=== PATIENT | male | born 1945 | race American Indian/Alaskan Native ===

== ENCOUNTER 2017-02-12 20:42 | Emergency (ER) | payer SELFPAY ==
[2017-02-12] MEDS ORDERED: KEPPRA 1,000 MG/NS 0.75% 100ML 1,000 MG/100 ML BAG IV ONE ×2 (21:06)
--- NOTE | 2017-02-12 21:11 | Emergency Department Report ---
HPI - General Chief Complaint: Seizure Time Seen by Provider: 02/12/17 20:53 - HPI HPI: Room 3 The patient is a 72-year-old male presenting with a chief complaint of seizure. Family states the patient had a generalized tonic-clonic seizure on the floor of his bedroom today at 17:30 0. Patient is amnestic to the event. Family states the seizure lasted "a while." Patient denies having any preceding symptoms and denies any current symptoms. The patient states right now he feels "all right." Location: Central nervous system Duration: Today at 17:30 for "a while" Quality: Generalized tonic-clonic Severity: Moderate Modifying factors: [see above] Context: [see above] Mode of transportation: EMS ED Past Medical Hx - Past Medical History Previous Medical History?: No - Surgical History Past Surgical History?: No - Family History Family history: no significant - Social History Smoking Status: Current Every Day Smoker (3-4 cigarettes daily) Substance Use Type: None (denies illicit drug use or alcohol use) - Medications Home Medications: Home Medications Medication Instructions Recorded Confirmed Last Taken Type levETIRAcetam [Keppra TAB] 500 mg PO BID #60 tablet 02/12/17 Unknown Rx ED Review of Systems ROS: Stated complaint: SEIZURE Other details as noted in HPI Comment: All other systems reviewed and negative Constitutional: denies: chills, fever Eyes: denies: eye pain, eye discharge, vision change ENT: denies: ear pain, throat pain Respiratory: denies: cough, shortness of breath, wheezing Cardiovascular: denies: chest pain, palpitations Endocrine: no symptoms reported Gastrointestinal: denies: abdominal pain, nausea, diarrhea Musculoskeletal: denies: back pain, joint swelling, arthralgia Skin: denies: rash, lesions Neurological: other (seizure). denies: headache, weakness, paresthesias Psychiatric: denies: anxiety, depression Hematological/Lymphatic: denies: easy bleeding, easy bruising Physical Exam - Physical Exam Physical Exam: GENERAL: The patient is well-developed well-nourished male lying on stretcher not appearing to be in acute distress. [] HEENT: Normocephalic. Atraumatic. Extraocular motions are intact. Patient has moist mucous membranes. Left sclera appears injected NECK: Supple. No meningitic signs are noted. Trachea midline CHEST/LUNGS: Clear to auscultation. There is no respiratory distress noted. HEART/CARDIOVASCULAR: Regular. There is no tachycardia. There is no gallop rub or murmur. ABDOMEN: Abdomen is soft, nontender. Patient has normal bowel sounds. There is no abdominal distention. SKIN: There is no rash. There is no edema. There is no diaphoresis. NEURO: The patient is awake, alert, and oriented. The patient is cooperative. The patient has no focal neurologic deficits. The patient has normal speech. Cranial nerves II through XII grossly intact, no drift MUSCULOSKELETAL: There is no evidence of acute injury. ED Medical Decision Making - Lab Data Result diagrams: 02/12/17 21:12 02/12/17 21:12 Laboratory Tests 02/12/17 02/12/17 02/12/17 21:12 21:12 21:12 WBC 6.9 RBC 4.52 Hgb 14.1 Hct 43.1 MCV 95 H MCH 31 MCHC 33 RDW 15.9 H Plt Count 221 Lymph % (Auto) 33.0 [place] % (Auto) 6.8 Eos % (Auto) 1.3 Baso % (Auto) 0.6 Lymph # 2.3 [place] # 0.5 Eos # 0.1 Baso # 0.0 Seg Neutrophils % 58.3 Seg Neutrophils # 4.0 PT 14.6 INR 1.08 APTT 35.5 Sodium 143 Potassium 4.2 Chloride 102.4 Carbon Dioxide 27 Anion Gap 18 BUN 11 Creatinine 0.9 Estimated GFR > 60 BUN/Creatinine Ratio 12.22 Glucose 101 H Calcium 9.0 Magnesium Total Creatine Kinase 65 CK-MB (CK-2) 1.7 CK-MB (CK-2) Rel Index 2.6 Troponin T Urine Color Urine Turbidity Urine pH Ur Specific [place] Urine Protein Urine Glucose (UA) Urine Ketones Urine Blood Urine Nitrite Urine Bilirubin Urine Urobilinogen Ur Leukocyte Esterase Urine WBC (Auto) Urine RBC (Auto) Urine Bacteria (Auto) Urine Mucus Urine Opiates Screen Urine Methadone Screen Ur Barbiturates Screen Ur Phencyclidine Scrn Ur Amphetamines Screen U Benzodiazepines Scrn Urine Cocaine Screen U Marijuana (THC) Screen Drugs of Abuse Note 02/12/17 02/12/17 02/12/17 21:12 21:34 21:34 WBC RBC Hgb Hct MCV MCH MCHC RDW Plt Count Lymph % (Auto) [place] % (Auto) Eos % (Auto) Baso % (Auto) Lymph # [place] # Eos # Baso # Seg Neutrophils % Seg Neutrophils # PT INR APTT Sodium Potassium Chloride Carbon Dioxide Anion Gap BUN Creatinine Estimated GFR BUN/Creatinine Ratio Glucose Calcium Magnesium 2.00 Total Creatine Kinase CK-MB (CK-2) CK-MB (CK-2) Rel Index Troponin T < 0.010 Urine Color Yellow Urine Turbidity Clear Urine pH 5.0 Ur Specific [place] 1.016 Urine Protein 30 mg/dl Urine Glucose (UA) Neg Urine Ketones Neg Urine Blood Neg Urine Nitrite Neg Urine Bilirubin Neg Urine Urobilinogen < 2.0 Ur Leukocyte Esterase Neg Urine WBC (Auto) < 1.0 Urine RBC (Auto) 1.0 Urine Bacteria (Auto) 1+ Urine Mucus Few Urine Opiates Screen Presumptive negative Urine Methadone Screen Presumptive negative Ur Barbiturates Screen Presumptive negative Ur Phencyclidine Scrn Presumptive negative Ur Amphetamines Screen Presumptive negative U Benzodiazepines Scrn Presumptive negative Urine Cocaine Screen Presumptive negative U Marijuana (THC) Screen Presumptive negative Drugs of Abuse Note Disclamer - EKG Data -: EKG Interpreted by Tx EKG shows normal: sinus rhythm Rate: normal - EKG Data When compared to previous EKG there are: previous EKG unavailable Interpretation: other (no ischemic changes seen) - Radiology Data Radiology results: report reviewed (CT head), image reviewed (CT head) CT head (read by radiologist)-no acute intracranial abnormality. Given patient' s age and provided history, MRI is suggested for further evaluation. 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 - Differential Diagnosis epilepsy, ICH, electrolyte imbalance, CVA Critical care attestation.: If time is entered above; I have spent that time in minutes in the direct care of this critically ill patient, excluding procedure time. ED Disposition Clinical Impression: Seizure Disposition: DC-01 TO HOME OR SELFCARE Is pt being admited?: No Does the pt Need Aspirin: No Condition: Stable Instructions: Epilepsy (ED), New-Onset Seizure in Adults (ED) Additional Instructions: You should not drive or operate heavy machinery or be unattended near large bodies water or [place] until you have been cleared by a neurologist. Return to the emergency department immediately should you develop worsening symptoms, fever, inability to tolerate food or liquid or any other concerns. Prescriptions: levETIRAcetam [Keppra TAB] 500 mg PO BID #60 tablet Referrals: VICTOR MANUEL LANTIGUA MD [Staff Physician] - [facility] (Dr. Lantigua is a neurologist. Please follow up with him for further evaluation) Time of Disposition: 23:10
--- NOTE | 2017-02-12 21:52 | Cat Scan Report ---
FINAL REPORT EXAM: CT HEAD/BRAIN WO CON HISTORY: new onset seizure TECHNIQUE: CT imaging is acquired through the brain without contrast. Transaxial , coronal and sagittal reformations are provided. PRIORS: None. FINDINGS: Ventricles and CSF spaces are proportionately enlarged, consistent with parenchymal atrophy. Scattered deep and subcortical white matter hypodense foci are confluent in some areas and are compatible with microvascular angiopathy. No acute intracranial hemorrhage or mass effect. Calvarium and superficial scalp are intact. Partially visualized paranasal sinuses are clear. Mastoids are clear. IMPRESSION: No acute intracranial abnormality. Given patient's age and provided history, MRI is suggested for further evaluation. 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
[2017-02-12 22:00] LABS: Basophils % (Auto) 0.6 % (0.0-1.8); Eosinophils % (Auto) 1.3 % (0.0-4.3); Hematocrit 43.1 % (35.5-45.6); Hemoglobin 14.1 gm/dl (11.8-15.2); Mean Corpuscular HGB Conc 33 % (32-34); Mean Corpuscular Hemoglobin 31 pg (28-32); Mean Corpuscular Volume 95 fl (84-94); Platelet Count 221 K/mm3 (140-440); Red Blood Count 4.52 M/mm3 (3.65-5.03); Red Cell Distribution Width 15.9 % (13.2-15.2); White Blood Count 6.9 K/mm3 (4.5-11.0)
[2017-02-12 22:09] LABS: Urine Drugs of Abuse Note Disclamer
[2017-02-12 22:38] LABS: Creatine Kinase MB 1.7 ng/mL (0.0-4.0)
[2017-02-12 22:39] LABS: Anion Gap 18 mmol/L; BUN/Creatinine Ratio 12.22; Blood Urea Nitrogen 11 mg/dL (9-20); Carbon Dioxide 27 mmol/L (22-30); Chloride 102.4 mmol/L (98-107); Creatine Kinase 65 units/L (55-170); Glucose 101 mg/dL (75-100); Potassium 4.2 mmol/L (3.6-5.0); Sodium 143 mmol/L (137-145)
[2017-02-12 22:44] LABS: INR 1.08 (0.87-1.13)
[2017-02-12 22:45] LABS: Partial Thromboplastin Time 35.5 Sec. (24.2-36.6)
[2017-02-12 22:52] LABS: Bacteria,Urine 1+ /HPF (Negative); Bilirubin,Urine NEG (Negative); Blood,Urine NEG (Negative); Ketones,Urine NEG (Negative); Leukocyte Esterase,Urine NEG (Negative); Mucus,Urine FEW /HPF; Nitrite,Urine NEG (Negative); Urobilinogen,Urine < 2.0 mg/dL (<2.0); WBC,Urine < 1.0 /HPF (0.0-6.0)
[2017-02-13 01:33] VITALS: BP 138/90
== END 2017-02-12 23:38 | disposition home or self-care (01) ==
LOC: EDSEX → ED 20:42
DX: R56.9 Unspecified convulsions (principal); F17.210 Nicotine dependence, cigarettes, uncomplicated
CPT/HCPCS: 36415; 70450; 80048; 80307; 81001; 82550; 82553; 83735; 84484; 85025; 85610; 85730; 93005; 93010; 96365; 99285; J1953

== ENCOUNTER 2017-07-31 10:46 | Inpatient (IN) | payer MEDICARE, MEDICAID ==
[2017-07-31] MEDS ORDERED: ATIVAN IV ONE ×2 (11:07→11:42)
[2017-07-31] MEDS ORDERED: ATIVAN ONE ×2 (11:10→15:24)
[2017-07-31 11:11] LABS: Urine Drugs of Abuse Note Disclamer
[2017-07-31 11:27] LABS: Bacteria,Urine 1+ /HPF (Negative); Bilirubin,Urine NEG (Negative); Blood,Urine NEG (Negative); Ketones,Urine NEG (Negative); Leukocyte Esterase,Urine NEG (Negative); Mucus,Urine FEW /HPF; Nitrite,Urine NEG (Negative); Urobilinogen,Urine < 2.0 mg/dL (<2.0)
[2017-07-31 12:00] LABS: Basophils % (Auto) 0.9 % (0.0-1.8); Eosinophils % (Auto) 1.9 % (0.0-4.3); Hematocrit 43.7 % (35.5-45.6); Hemoglobin 14.2 gm/dl (11.8-15.2); Mean Corpuscular HGB Conc 33 % (32-34); Mean Corpuscular Hemoglobin 31 pg (28-32); Mean Corpuscular Volume 95 fl (84-94); Platelet Count 244 K/mm3 (140-440); Red Blood Count 4.59 M/mm3 (3.65-5.03); Red Cell Distribution Width 16.6 % (13.2-15.2); White Blood Count 8.4 K/mm3 (4.5-11.0)
--- NOTE | 2017-07-31 12:11 | Cat Scan Report ---
CT HEAD WITHOUT CONTRAST: HISTORY: Altered mental status. TECHNIQUE: Sequential CT images without contrast. FINDINGS: Images obtained show bilateral prominence of the sulci and ventricles. There are no abnormal intra- or extra-axial blood or fluid collections. There are no focal masses or evidence of mass effect. The rodriguez white matter differentiation appears within normal limits. Regions of periventricular decreased attenuation are consistent with microangiopathic ischemic disease. Focal chronic infarcts are identified in the left anterior quiroga radiata and left moise which are new findings since CT brain dated 02/12/17. 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 No acute intracranial process is identified.
[2017-07-31 12:12] LABS: Alanine Aminotransferase 14 units/L (7-56); Albumin 4.1 g/dL (3.9-5); Albumin/Globulin Ratio 1.4 %; Alkaline Phosphatase 77 units/L (35-129); Anion Gap 20 mmol/L; BUN/Creatinine Ratio 16; Blood Urea Nitrogen 14 mg/dL (9-20); Carbon Dioxide 25 mmol/L (22-30); Chloride 98.1 mmol/L (98-107); Creatine Kinase 109 units/L (55-170); Glucose 163 mg/dL (75-100); Potassium 3.1 mmol/L (3.6-5.0); Sodium 140 mmol/L (137-145)
[2017-07-31] MEDS ORDERED: KEPPRA 1,000 MG/NS 0.75% 100ML 1,000 MG/100 ML BAG IV ONE (12:14)
--- NOTE | 2017-07-31 12:32 | Emergency Department Report ---
HPI - General Chief Complaint: Altered Mental Status Time Seen by Provider: 07/31/17 11:09 - HPI HPI: This is a 72-year-old male presents to the emergency department through triage with altered mental status and suspicion for a seizure. The patient's niece is currently at bedside but was not there at the time but says that he was riding in a friend's car when he appeared to have seizure-like activity. Since he has been in the emergency department the patient is awake but confused and unable to answer questions. Therefore is a poor historian. Unknown what antiepileptic medication he is on or if he has a primary care physician. ED Past Medical Hx - Past Medical History Hx Seizures: Yes - Social History Smoking Status: Current Every Day Smoker (3-4 cigarettes daily) Substance Use Type: None (denies illicit drug use or alcohol use) - Medications Home Medications: Home Medications Medication Instructions Recorded Confirmed Last Taken Type levETIRAcetam [Keppra TAB] 500 mg PO BID #60 tablet 02/12/17 Unknown Rx ED Review of Systems ROS: Stated complaint: SEIZURE Other details as noted in HPI Comment: Unobtainable due to pts medical conditions Physical Exam - Physical Exam Vital Signs: Vital Signs 07/31/17 12:20 Temperature 98.4 F Pulse Rate 104 H Respiratory 18 Rate Blood Pressure 152/98 [Left] O2 Sat by Pulse 98 Oximetry Physical Exam: GENERAL: The patient is awake but confused and possibly postictal. HENT: Normocephalic. Atraumatic. Patient has moist mucous membranes. EYES: Extraocular motions are intact. Pupils equal reactive to light bilaterally. NECK: Supple. Trachea is midline. CHEST/LUNGS: Clear to auscultation. There is no respiratory distress noted. HEART/CARDIOVASCULAR: Regular. There is mild tachycardia. There is no murmur. ABDOMEN: Abdomen is soft, nontender. Patient has normal bowel sounds. There is no abdominal distention. SKIN: Skin is warm and dry. NEURO: The patient is awake but confused. He is not following any commands. He is slightly agitated. When asked a question, the patient repeats the question but does not answer. MUSCULOSKELETAL: There is no tenderness or deformity. There is no limitation range of motion. There is no evidence of acute injury. ED Course Vital Signs 07/31/17 12:20 Temperature 98.4 F Pulse Rate 104 H Respiratory 18 Rate Blood Pressure 152/98 [Left] O2 Sat by Pulse 98 Oximetry ED Medical Decision Making - Lab Data Result diagrams: 07/31/17 11:32 07/31/17 11:32 - Radiology Data Radiology results: report reviewed CT HEAD WITHOUT CONTRAST: HISTORY: Altered mental status. TECHNIQUE: Sequential CT images without contrast. FINDINGS: Images obtained show bilateral prominence of the sulci and ventricles. There are no abnormal intra- or extra-axial blood or fluid collections. There are no focal masses or evidence of mass effect. The rodriguez white matter differentiation appears within normal limits. Regions of periventricular decreased attenuation are consistent with microangiopathic ischemic disease. Focal chronic infarcts are identified in the left anterior quiroga radiata and left moise which are new findings since CT brain dated 02/12/17. 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 No acute intracranial process is identified. Transcribed By: TTR Dictated By: SRAVANTHI AZUL JR, MD Electronically Authenticated By: SRAVANTHI AZUL JR, MD Signed Date/Time: 07/31/17 1206 - Medical Decision Making The patient allegedly had a witnessed seizure just prior to presentation. He has been altered since arrival. CT of the head did not show any bleed, shift, mass or any acute process. Labs up and mostly unremarkable and do not show any etiology of his symptoms. He did receive some Ativan in order to treat the seizure and allow us to get labs and imaging completed. However he has been reevaluated multiple times for multiple hours and still appears altered. It is reasonable be admitted to the hospital for further evaluation and treatment and has been accepted for admission by the hospitalist, Dr. Nath. - Differential Diagnosis seizure, TIA, CVA, sepsis Critical Care Time: No Critical care attestation.: If time is entered above; I have spent that time in minutes in the direct care of this critically ill patient, excluding procedure time. ED Disposition Clinical Impression: Seizure, Hypokalemia Altered mental status Qualifiers: Altered mental status type: unspecified Qualified Code(s): R41.82 - Altered mental status, unspecified Disposition: 09 OP ADMIT IP TO THIS HOSP Is pt being admited?: Yes Condition: Fair Referrals: PRIMARY CARE, [Primary Care Provider] - 3-5 Days Time of Disposition: 15:10
[2017-07-31] MEDS: KCL 10MEQ/100ML 10 MEQ/100 ML BAG IV SCH ×2 (13:41→14:52)
--- NOTE | 2017-07-31 14:52 | History and Physical Report ---
History of Present Illness Chief complaint: confusion History of present illness: 72 YO Female with Nicotine Dependence, Nicotine Dependence presents to ED for evaluation. Pt unable to provide history, Pt is lethargic and confused on exam. Pt history taken from Family as well as ED staff. As per family, the patient was riding in a friends car when he lost consciousness and began having generalized tonic clonic like seizure activity. Pt was subsequently transported to [facility] for further evaluation and care. Pt seen and evaluated in ED and found to be in a postictal state. Pt noncompliant with Keppra therapy. Pt loaded with keppra and admitted to medical floor. Past History Past Medical History: seizures Past Surgical History: No surgical history, Other (reviewed) Social history: smoking Family history: no significant family history, other (reviewed) Medications and Allergies Allergies Allergy/AdvReac Type Severity Reaction Status Date / Time No Known Allergies Allergy Verified 02/12/17 21:22 Home Medications Medication Instructions Recorded Confirmed Last Taken Type No Known Home Medications [No 07/31/17 07/31/17 Unknown History Reported Home Medications] Active Meds: Active Medications Potassium Chloride (Kcl 10meq/100ml) 10 meq in 100 mls @ 100 mls/hr IV Q1H JOSH Stop: 07/31/17 14:59 Last Admin: 07/31/17 14:52 Dose: 100 mls/hr Review of Systems ROS unobtainable: due to mental status Exam - Constitutional Vitals: Temp Pulse Resp BP Pulse Ox 98.4 F 118 H 96 H 152/98 96 07/31/17 12:20 07/31/17 13:30 07/31/17 14:51 07/31/17 13:30 07/31/17 13:30 General appearance: Present: mild distress - EENT Eyes: Present: PERRL ENT: hearing intact, clear oral mucosa - Neck Neck: Present: supple, normal ROM - Respiratory Respiratory effort: normal Respiratory: bilateral: CTA - Cardiovascular Heart Sounds: Present: S1 & S2. Absent: rub, click - Extremities Extremities: pulses symmetrical, No edema Peripheral Pulses: within normal limits - Abdominal General gastrointestinal: Present: soft, non-tender, non-distended, normal bowel sounds Male genitourinary: Present: normal - Integumentary Integumentary: Present: clear, dry, decreased turgor - Musculoskeletal Musculoskeletal: generalized weakness - Psychiatric Psychiatric: no intact judgment & insight, no memory intact - Neurologic Neurologic: no gait normal Results - Labs CBC & Chem 7: 07/31/17 11:32 07/31/17 11:32 Labs: Abnormal lab results 07/31/17 07/31/17 07/31/17 Range/Units 11:32 11:32 11:32 MCV 95 H (84-94) fl RDW 16.6 H (13.2-15.2) % Potassium 3.1 L (3.6-5.0) mmol/L Glucose 163 H (75-100) mg/dL Salicylates < 0.3 L (2.8-20.0) mg/dL Assessment and Plan - Patient Problems (1) Seizure Current Visit: Yes Status: Acute Plan to address problem: Pt loaded with keppra therapy, keppra bid, aspiration precautions. neuro checks , CT Head to evaluate for trauma or hydrocephalous. (2) Unconscious state Current Visit: Yes Status: Acute Plan to address problem: CT Head, neuro checks, supportive care, aspiration precautions, (3) Encephalopathy Current Visit: Yes Status: Acute Plan to address problem: Metabolic encephalopathy: IVF resuscitation, fall risk protocol, CT head, neuro checks. (4) Nicotine dependence Current Visit: Yes Status: Acute Plan to address problem: supportive care, (5) DVT prophylaxis Current Visit: Yes Status: Acute
[2017-07-31] MEDS ORDERED: MILK OF MAGNESIA PO PRN (14:54)
[2017-07-31] MEDS ORDERED: TYLENOL PO PRN (14:54)
[2017-07-31] MEDS ORDERED: DULCOLAX PR PRN (14:54)
[2017-07-31] MEDS ORDERED: ZOFRAN IV PRN (14:54)
[2017-07-31] MEDS ORDERED: PROVENTIL IH PRN (14:54)
[2017-08-01] MEDS ORDERED: APRESOLINE IV PRN ×2 (05:29→14:02)
[2017-08-01] MEDS: KEPPRA PO SCH ×3 (06:13→22:47)
--- NOTE | 2017-08-01 07:37 | History and Physical Report ---
History of Present Illness Date of admission: 07/31/17 14:54 Past History Past Medical History: seizures Past Surgical History: No surgical history, Other (reviewed) Social history: smoking Family history: no significant family history, other (reviewed) Medications and Allergies Allergies Allergy/AdvReac Type Severity Reaction Status Date / Time No Known Allergies Allergy Verified 02/12/17 21:22 Home Medications Medication Instructions Recorded Confirmed Last Taken Type No Known Home Medications [No 07/31/17 07/31/17 Unknown History Reported Home Medications] Active Meds: Active Medications Acetaminophen (Tylenol) 650 mg PO Q4H PRN PRN Reason: Pain MILD(1-3)/Fever >100.5/RICHARDS Albuterol (Proventil) 2.5 mg IH Q4HRT PRN PRN Reason: Shortness Of Breath Bisacodyl (Dulcolax) 10 mg MS QDAY PRN PRN Reason: Constipation unrelieved by MOM Hydralazine HCl (Apresoline) 5 mg IV Q4HR PRN PRN Reason: Hypertension Last Admin: 08/01/17 06:12 Dose: 5 mg Levetiracetam (Keppra) 500 mg PO BID JOSH Last Admin: 08/01/17 06:13 Dose: Not Given Magnesium Hydroxide (Milk Of Magnesia) 30 ml PO Q4H PRN PRN Reason: Constipation Ondansetron HCl (Zofran) 4 mg IV Q8H PRN PRN Reason: N/V unrelieved by Reglan Exam - Constitutional Vitals: Temp Pulse Resp BP Pulse Ox 98.7 F 116 H 18 127/90 97 08/01/17 07:21 08/01/17 07:21 08/01/17 07:21 08/01/17 07:21 08/01/17 07:21 Results - Labs CBC & Chem 7: 07/31/17 11:32 07/31/17 11:32 Labs: Laboratory Last Values WBC 8.4 K/mm3 (4.5-11.0) 07/31/17 11:32 RBC 4.59 M/mm3 (3.65-5.03) 07/31/17 11:32 Hgb 14.2 gm/dl (11.8-15.2) 07/31/17 11:32 Hct 43.7 % (35.5-45.6) 07/31/17 11:32 MCV 95 fl (84-94) H 07/31/17 11:32 MCH 31 pg (28-32) 07/31/17 11:32 MCHC 33 % (32-34) 07/31/17 11:32 RDW 16.6 % (13.2-15.2) H 07/31/17 11:32 Plt Count 244 K/mm3 (140-440) 07/31/17 11:32 Lymph % (Auto) 33.5 % (13.4-35.0) 07/31/17 11:32 [place] % (Auto) 6.1 % (0.0-7.3) 07/31/17 11:32 Eos % (Auto) 1.9 % (0.0-4.3) 07/31/17 11:32 Baso % (Auto) 0.9 % (0.0-1.8) 07/31/17 11:32 Lymph # 2.8 K/mm3 (1.2-5.4) 07/31/17 11:32 [place] # 0.5 K/mm3 (0.0-0.8) 07/31/17 11:32 Eos # 0.2 K/mm3 (0.0-0.4) 07/31/17 11:32 Baso # 0.1 K/mm3 (0.0-0.1) 07/31/17 11:32 Seg Neutrophils % 57.6 % (40.0-70.0) 07/31/17 11:32 Seg Neutrophils # 4.8 K/mm3 (1.8-7.7) 07/31/17 11:32 Sodium 140 mmol/L (137-145) 07/31/17 11:32 Potassium 3.1 mmol/L (3.6-5.0) L 07/31/17 11:32 Chloride 98.1 mmol/L (98-107) 07/31/17 11:32 Carbon Dioxide 25 mmol/L (22-30) 07/31/17 11:32 Anion Gap 20 mmol/L 07/31/17 11:32 BUN 14 mg/dL (9-20) 07/31/17 11:32 Creatinine 0.9 mg/dL (0.8-1.5) 07/31/17 11:32 Estimated GFR > 60 ml/min 07/31/17 11:32 BUN/Creatinine Ratio 16 % 07/31/17 11:32 Glucose 163 mg/dL (75-100) H 07/31/17 11:32 Calcium 9.0 mg/dL (8.4-10.2) 07/31/17 11:32 Total Bilirubin 0.90 mg/dL (0.1-1.2) 07/31/17 11:32 AST 17 units/L (5-40) 07/31/17 11:32 ALT 14 units/L (7-56) 07/31/17 11:32 Alkaline Phosphatase 77 units/L (35-129) 07/31/17 11:32 Total Creatine Kinase 109 units/L (55-170) 07/31/17 11:32 Troponin T < 0.010 ng/mL (0.00-0.029) 07/31/17 11:32 Total Protein 7.0 g/dL (6.3-8.2) 07/31/17 11:32 Albumin 4.1 g/dL (3.9-5) 07/31/17 11:32 Albumin/Globulin Ratio 1.4 % 07/31/17 11:32 TSH 0.735 mlU/mL (0.270-4.200) 07/31/17 11:32 Urine Color Yellow (Yellow) 07/31/17 11:00 Urine Turbidity Clear (Clear) 07/31/17 11:00 Urine pH 6.0 (5.0-7.0) 07/31/17 11:00 Ur Specific [place] 1.017 (1.003-1.030) 07/31/17 11:00 Urine Protein 100 mg/dl mg/dL (Negative) 07/31/17 11:00 Urine Glucose (UA) Neg mg/dL (Negative) 07/31/17 11:00 Urine Ketones Neg mg/dL (Negative) 07/31/17 11:00 Urine Blood Neg (Negative) 07/31/17 11:00 Urine Nitrite Neg (Negative) 07/31/17 11:00 Urine Bilirubin Neg (Negative) 07/31/17 11:00 Urine Urobilinogen < 2.0 mg/dL (<2.0) 07/31/17 11:00 Ur Leukocyte Esterase Neg (Negative) 07/31/17 11:00 Urine WBC (Auto) 2.0 /HPF (0.0-6.0) 07/31/17 11:00 Urine RBC (Auto) 1.0 /HPF (0.0-6.0) 07/31/17 11:00 Urine Bacteria (Auto) 1+ /HPF (Negative) 07/31/17 11:00 Urine Mucus Few /HPF 07/31/17 11:00 Salicylates < 0.3 mg/dL (2.8-20.0) L 07/31/17 11:32 Urine Opiates Screen Presumptive negative 07/31/17 11:00 Urine Methadone Screen Presumptive negative 07/31/17 11:00 Acetaminophen < 15.0 ug/mL (10.0-30.0) 07/31/17 11:32 Ur Barbiturates Screen Presumptive negative 07/31/17 11:00 Ur Phencyclidine Scrn Presumptive negative 07/31/17 11:00 Ur Amphetamines Screen Presumptive negative 07/31/17 11:00 U Benzodiazepines Scrn Presumptive negative 07/31/17 11:00 Urine Cocaine Screen Presumptive negative 07/31/17 11:00 U Marijuana (THC) Screen Presumptive positive 07/31/17 11:00 Drugs of Abuse Note Disclamer 07/31/17 11:00 Plasma/Serum Alcohol < 0.01 gm% (0-0.07) 07/31/17 11:32
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
[2017-08-01 08:16] LABS: Anion Gap 17 mmol/L; BUN/Creatinine Ratio 14; Blood Urea Nitrogen 11 mg/dL (9-20); Calcium 8.9 mg/dL (8.4-10.2); Carbon Dioxide 28 mmol/L (22-30); Chloride 101.8 mmol/L (98-107); Glucose 82 mg/dL (75-100); Potassium 3.5 mmol/L (3.6-5.0); Sodium 143 mmol/L (137-145)
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
--- NOTE | 2017-08-01 17:53 | Magnetic Resonance Report ---
FINAL REPORT EXAM: MR BRAIN WO CON HISTORY: seizure TECHNIQUE: Multiplanar, multisequence MRI of the brain was performed without intravenous contrast. PRIORS: CT of the head 02/12/2017. FINDINGS: Motion artifact degrades image quality on several sequences. Several punctate areas of decreased signal on the T2 GRE sequence are seen scattered throughout the cerebrum, brainstem and right cerebellar hemisphere. No intracranial mass or evidence of acute ischemic infarct. No restricted diffusion. The intracranial flow voids are patent. Dilated ventricles, likely related to diffuse cerebral volume loss. Confluent areas of T2 FLAIR hyperintensity are seen in the periventricular and subcortical white matter. The basilar cisterns are patent. Mucosal thickening of the paranasal sinuses sparing the sphenoid sinus is noted. Left frontal sinus mucous retention cyst or osteoma is seen. An air-fluid level seen in the right maxillary sinus. The orbits are intact. The extracranial soft tissues are normal. IMPRESSION: 1. Severe findings of chronic microvascular ischemic disease with scattered signal abnormality which may represent chronic hypertensive microhemorrhages versus amyloid angiopathy. 2. Air-fluid level in the right maxillary sinus can be seen in acute sinusitis. 3. Diffuse cerebral volume loss.
--- NOTE | 2017-08-02 08:31 | Event Note ---
Date: 08/02/17 Patient seen and examined this morning improved symptomatically. Patient educated about clinical diagnosis. We did speak with the niece and verified home medication he is on HCTZ losartan combination. Tachycardia has resolved. He still a little confused as to month but oriented to day and person. He has an echocardiogram pending and will be done prior to discharge anticipated to distress today for continued neurology. Patient should continue on blood pressure control of educated the patient on this and also based on MRI result although not indicative of stroke he does have some severe ischemic disease and recommended an aspirin daily 81 mg. I've also advised against alcohol or driving until he is evaluated by neurology outpatient. See full discharge summary;
[2017-08-02] MEDS: KEPPRA PO SCH (09:54)
[2017-08-02] MEDS ORDERED: DIOVAN PO SCH (10:00)
[2017-08-02] MEDS ORDERED: COZAAR PO SCH (10:00)
[2017-08-02] MEDS ORDERED: ASPIRIN PO SCH (10:00)
[2017-08-02] MEDS ORDERED: HCTZ PO SCH (10:00)
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
--- NOTE | 2017-08-02 12:21 | Progress Note ---
Assessment and Plan Echocardiogram and EEG completed. Patient is ready for discharge. - Patient Problems (1) Hypertension Current Visit: No Status: Acute Qualifiers: Hypertension type: essential hypertension Qualified Code(s): I10 - Essential (primary) hypertension (2) Tachycardia Onset Date: Unknown Current Visit: Yes Status: Acute Subjective Date of service: 08/02/17 Principal diagnosis: seizures, cerebrovsscular disease Interval history: Patient is awake and alert. Still responds slowly. Denies headache. Tolerating meals. Ambulating to chair. Objective - Vital Sign Vital Signs - 12hr 08/02/17 08/02/17 08/02/17 02:39 04:03 07:44 Temperature 99.4 F 99.5 F Pulse Rate 96 H 101 H Respiratory 20 18 20 Rate Blood Pressure 150/112 147/109 O2 Sat by Pulse 96 96 97 Oximetry 08/02/17 09:54 Temperature Pulse Rate 101 H Respiratory Rate Blood Pressure 147/109 O2 Sat by Pulse Oximetry - General Apperance Constitutional: comfortable - EENT EENT: mucous membranes moist - Neurologic Cranial nerve examination: EOMI, face symmetric, tongue midline Speech examination: intact Detailed motor examination: grossly full strength in Detailed sensory examination: intact Reflex and gait examination: normal gait (Echocardiogram completed today. Report pending. EEG also completed. Slow rhythm, 6 to 7 Hz, no focus of seizure activity identified.) - Laboratory Findings CBC and BMP: 07/31/17 11:32 08/01/17 07:48 Abnormal Lab Findings: Abnormal Labs 07/31/17 07/31/17 07/31/17 11:32 11:32 11:32 MCV 95 H RDW 16.6 H Potassium 3.1 L Glucose 163 H HDL Cholesterol Salicylates < 0.3 L 08/01/17 08/02/17 07:48 09:33 MCV RDW Potassium 3.5 L Glucose HDL Cholesterol 38 L Salicylates
[2017-08-02 14:54] VITALS: BP 139/109
[2017-08-02] MEDS ORDERED: PNEUMOVAX 23 IM ONE (15:00)
[2017-08-02] MEDS ORDERED: Fluarix Quad 2017-2018(36 MOS+ IM ONE (15:00)
[2017-08-02] MEDS ORDERED: APRESOLINE PO ONE (15:00)
== END 2017-08-02 15:10 | disposition home or self-care (01) | DRG 100 ==
LOC: ED 10:46 → 3A 14:54 → 2B-ACE 21:21
PROVIDERS: ADMIT Internal Medicine; ATTEND Internal Medicine
PROC: 3E0234Z Introduction of Serum, Toxoid and Vaccine into Muscle, Percutaneous Approach (ICD-10-PCS; principal; 2017-07-31)
DX: G40.89 Other seizures (principal); G93.41 Metabolic encephalopathy; R40.20 Unspecified coma; R00.0 Tachycardia, unspecified; Z91.19 Patient's noncompliance with other medical treatment and regimen; E86.0 Dehydration; I10 Essential (primary) hypertension; Z23 Encounter for immunization; F17.210 Nicotine dependence, cigarettes, uncomplicated; E87.6 Hypokalemia; I67.9 Cerebrovascular disease, unspecified; Z71.6 Tobacco abuse counseling
CPT/HCPCS: 36415; 70450; 70551; 80048; 80053; 80061; 80307; 80320; 81001; 82550; 84443; 84484; 85025; 90471; 90686; 90732; 93005; 93010; 93306; 95819; 96361; 96365; 96375; G0009; G0480; J0360; J1953; J2060; J3480

== ENCOUNTER 2018-09-02 10:33 | Emergency (ER) | payer MEDICARE ==
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
[2018-09-02 10:56] LABS: Hematocrit 41.2 % (35.5-45.6); Hemoglobin 13.7 gm/dl (11.8-15.2); Mean Corpuscular HGB Conc 33 % (32-34); Mean Corpuscular Volume 95 fl (84-94); Platelet Count 309 K/mm3 (140-440); Red Blood Count 4.33 M/mm3 (3.65-5.03); Red Cell Distribution Width 15.8 % (13.2-15.2)
[2018-09-02 11:08] LABS: Partial Thromboplastin Time 32.1 Sec. (24.2-36.6)
[2018-09-02 11:15] LABS: Alanine Aminotransferase 10 units/L (7-56); Albumin 4.1 g/dL (3.9-5); BUN/Creatinine Ratio 13; Blood Urea Nitrogen 13 mg/dL (9-20); Calcium 9.5 mg/dL (8.4-10.2); Hemolysis Index 34; INR 0.92 (0.87-1.13)
[2018-09-02] MEDS ORDERED: NACL 0.9% 500 ML 500 ML IV ONE (11:26)
[2018-09-02 11:28] VITALS: BP 136/102
--- NOTE | 2018-09-02 11:40 | XRay Report ---
FINAL REPORT EXAM: XR CHEST 1V AP HISTORY: dyspnea tachycardia ? syncope TECHNIQUE: Frontal chest radiograph. PRIORS: None. FINDINGS: Aortic calculi are seen. Tortuous thoracic aorta is noted. The cardiomediastinal silhouette is normal . No focal consolidation. No pleural effusion. No pneumothorax. No acute osseous abnormality. IMPRESSION: No acute cardiopulmonary process.
[2018-09-02 13:08] LABS: Bilirubin,Urine NEG (Negative); Blood,Urine NEG (Negative); Color,Urine Straw (Yellow); Mucus,Urine FEW /HPF; Protein,Urine <15 mg/dL mg/dL (Negative); Urobilinogen,Urine < 2.0 mg/dL (<2.0); WBC,Urine < 1.0 /HPF (0.0-6.0)
--- NOTE | 2018-09-02 13:14 | Cat Scan Report ---
FINAL REPORT EXAM: CT HEAD/BRAIN WO CON HISTORY: AMS, WEAKNESS, HX STROKE X 3. TECHNIQUE: CT of the head was performed without intravenous contrast. PRIORS: MRI of the brain from 08/01/2017. CT of the head from 02/12/2017. FINDINGS: The ventricles are normal in shape and position. Unchanged diffuse cerebral volume loss and severe fi ndings of chronic microvascular ischemic disease. There is a focal ovoid area of low attenuation in t he left moise measuring 12 x 6 millimeters. This area is near CSF in attenuation. Probable old left ba clay ganglia lacunar infarct is seen. No intracranial hemorrhage, mass, mass effect, midline shift or evidence of acute ischemic infarct. The basilar cisterns are patent. The paranasal sinuses are clear. The extracranial soft tissues demonstrate no abnormality. The calvar ium is intact. The orbits are intact. The mastoid air cells are clear. IMPRESSION: 1. No definite acute intracranial abnormality. 2. New ovoid cystic area in the left moise may represent an old lacunar infarct versus prominent periv ascular space. 3. Probable old left basal ganglia lacunar infarct. 4. Unchanged severe findings of chronic microvascular ischemic disease and diffuse cerebral volume lo ss.
--- NOTE | 2018-09-02 13:45 | Cat Scan Report ---
FINAL REPORT EXAM: CT ANGIO CHEST HISTORY: tachycardia, hypoxia. HX OF PE. TECHNIQUE: CTA of the chest was performed after the administration of intravenous contrast. Rotating MIPS were included. Reconstructions were included in the coronal and sagittal planes. PRIORS: None. FINDINGS: Pulmonary arteries and thoracic aorta: The study is adequate for diagnostic purposes. No central or s egmental pulmonary embolism. The descending thoracic aorta is mildly ectatic measuring up to 3.2 cent imeters AP. No evidence of thoracic aortic aneurysm. Note that there is poor opacification of the tho racic aorta. Lungs and airways: No pleural effusion. No airspace consolidation. The airways are patent. No bronchi ectasis. No pulmonary nodules or masses. Mild peripheral reticular opacities are seen throughout the lungs. Mediastinum, heart, pericardium: No mediastinal lymphadenopathy. No cardiac chamber enlargement. No p ericardial effusion. Thoracic inlet, chest wall, axilla: No chest wall masses. The visualized portions of the thyroid glan d demonstrate no focal lesion. No axillary lymphadenopathy. Upper abdomen: Multiple probable simple bilateral renal cysts are seen. There is a 12 millimeter low- attenuation lesion in the superior pole of the left kidney which is higher in attenuation than a simp le cyst. In the right retroperitoneum, there is a soft tissue attenuation lesion along the anterior a spect of the psoas muscle which is incompletely imaged. Maximum transaxial dimensions of the imaged p ortions of the lesion measure 3.3 x 3.2 centimeters. Multiple simple and probable simple hepatic cyst s are seen. Bones: Mild degenerative changes are seen in the thoracic spine. IMPRESSION: 1. No central or segmental pulmonary embolism. No acute process in the chest. 2. Mild findings of chronic pulmonary fibrosis. 3. Nonspecific left superior pole renal lesion. Further evaluation with dedicated renal CT or MRI ellen uld be performed. 4. Nonspecific soft tissue attenuation lesion in the right retroperitoneum which is incompletely imag ed may represent an enlarged lymph node versus retroperitoneal soft tissue mass. This lesion can be f urther assessed on the dedicated renal study.
== END 2018-09-02 16:51 | disposition home or self-care (01) ==
LOC: ED 10:33
DX: I47.1 Supraventricular tachycardia (principal); F17.200 Nicotine dependence, unspecified, uncomplicated; Z86.73 Personal history of transient ischemic attack (TIA), and cerebral infarction without residual deficits
CPT/HCPCS: 36415; 70450; 71045; 71275; 80053; 81001; 82550; 83735; 84443; 84484; 85027; 85379; 85610; 85730; 93005; 93010; 99285; G0480; Q9967; 80320